=== PATIENT | female | born 1945 | race African-American/Black ===

== ENCOUNTER 2019-09-10 15:14 | Emergency (ER) | payer MEDICARE ==
[~2019-09-10] VITALS: Ht 157.5 cm; Wt 77.3 kg
[2019-09-10 15:20] VITALS: BP 162/72
[2019-09-10] MEDS ORDERED: METR-159 PO (16:58)
[2019-09-10] MEDS ORDERED: CEFU500T66 PO (16:58)
[2019-09-10] MEDS ORDERED: CefTRIAXone 1000mg IM Kit (w/lidocaine diluent) IM ONE (17:00)
[2019-09-10] MEDS ORDERED: EPIN0.3P3 IM (17:17)
== END 2019-09-10 17:40 | disposition home or self-care (01) ==
LOC: ER 15:15
DX: K02.9 Dental caries, unspecified (principal); Z98.890 Other specified postprocedural states; Z88.6 Allergy status to analgesic agent; Z88.0 Allergy status to penicillin; Z88.2 Allergy status to sulfonamides; Z88.1 Allergy status to other antibiotic agents; Z88.8 Allergy status to other drugs, medicaments and biological substances; Z79.2 Long term (current) use of antibiotics; Z79.899 Other long term (current) drug therapy
CPT/HCPCS: 96372; 99283; J0696

== ENCOUNTER 2020-10-12 15:18 | Inpatient (IN) | payer MEDICARE ==
[~2020-10-12] VITALS: Ht 157.5 cm; Wt 84.7 kg
[~2020-10-12 15:18] MED LIST: CEFU500T66 PO; EPIN0.3P3 IM
[2020-10-12 16:27] LABS: BASOPHILS % (AUTO) 0.4 % (0-1); EOSINOPHILS # (AUTO) 0.1 X10'3 (0-0.9); EOSINOPHILS % (AUTO) 0.9 % (0-6); HEMATOCRIT 39.5 % (35.0-45.0); HEMOGLOBIN 12.5 g/dl (12.0-16.0); LYMPHOCYTES # (AUTO) 1.4 X10'3 (1.1-4.8); LYMPHOCYTES % (AUTO) 24.2 % (21-51); MEAN CORPUSCULAR HGB CONC 31.7 g/dL (33.0-36.5); MEAN CORPUSCULAR VOLUME 82.1 FL (78-98); MEAN PLATELET VOLUME 9.3 FL (7.4-10.4); MONOCYTES # (AUTO) 0.5 X10'3 (0-0.9); MONOCYTES % (AUTO) 8.8 % (2-12); NEUTROPHILS # (AUTO) 3.8 X10'3 (1.8-7.7); NEUTROPHILS % (AUTO) 65.7 % (42-75); PLATELET COUNT 164 X10'3 (140-440); RED BLOOD COUNT 4.81 X10'6 (4.20-5.60); RED CELL DISTRIBUTION WIDTH 14.7 % (11.5-14.5); WHITE BLOOD COUNT 5.8 X10'3 (4.5-11.0)
[2020-10-12 17:02] LABS: ALANINE AMINOTRANSFERASE 18 U/L (12-78); ALBUMIN 3.4 G/DL (3.4-5.0); ALBUMIN/GLOBULIN RATIO 0.8 (1.1-1.5); ALKALINE PHOSPHATASE 99 IU/L (46-116); ANION GAP 7 (8-16); ASPARTATE AMINO TRANSFERASE 10 U/L (10-37); BILIRUBIN,TOTAL 0.4 MG/DL (0.1-1.0); BLOOD UREA NITROGEN 14 MG/DL (7-18); CALCIUM 9.5 MG/DL (8.5-10.1); CHLORIDE 107 MMOL/L (99-107); GLUCOSE 123 MG/DL (70-104); PARTIAL THROMBOPLASTIN TIME 29 SECONDS (22-32); POTASSIUM 4.4 MMOL/L (3.5-5.1); SODIUM 143 MMOL/L (135-145); TOTAL CARBON DIOXIDE 28.6 MMOL/L (24-32); TOTAL PROTEIN 7.7 G/DL (6.4-8.2); eGFR 66 ML/MIN
[2020-10-12] MEDS ORDERED: heparin 10,000 units/1 ML INJ IV ONE ×3 (17:15→17:55)
[2020-10-12] MEDS ORDERED: heparin 25,000 UNIT/250ml bag 250 ML IV SCH ×2 (17:15→17:55)
[2020-10-12 17:16] LABS: MAGNESIUM 2.1 MG/DL (1.5-2.4)
[2020-10-12] MEDS ORDERED: BISO1TAB99 PO (17:23)
[2020-10-12] MEDS ORDERED: QUIN20TA18 PO (17:23)
[2020-10-12] MEDS ORDERED: heparin 10,000 units/1 ML INJ IV PRN (17:55)
[2020-10-12] MEDS ORDERED: ondansetron/PF 4mg/2ml inj IV PRN (17:55)
[2020-10-12] MEDS ORDERED: magnesium 4gm in 100ml NS 100 ML IV PRN (17:55)
[2020-10-12] MEDS ORDERED: HYDROcodone/acetaminophen 10/325mg tab PO PRN (17:55)
[2020-10-12] MEDS ORDERED: potassium Cl 40MEQ/1/2NS 520ml 520 ML IV PRN ×2 (17:55)
[2020-10-12] MEDS ORDERED: potassium Cl 20 mEq SR tablet PO PRN ×2 (17:55)
[2020-10-12] MEDS ORDERED: magnesium 2GM in 50ml NS 50 ML IV PRN (17:55)
[2020-10-12] MEDS ORDERED: ipratropium/albuterol 3ml nebule NEB PRN (17:55)
[2020-10-12] MEDS ORDERED: albuterol 2.5 MG/3 ML nebule NEB PRN (17:55)
[2020-10-12] MEDS ORDERED: acetaminophen 325mg tablet PO PRN ×2 (17:55)
[2020-10-12] MEDS ORDERED: HYDROcodone/acetaminophen 5mg/325mg tablet PO PRN (17:55)
--- NOTE | 2020-10-12 18:14 | NUR ---
ocular care technician at bedside.
[2020-10-12] MEDS: heparin 25,000 UNIT/250ml bag 250 ML IV SCH (19:29)
[2020-10-12 20:00] VITALS: BP 165/75
[2020-10-12] MEDS: K and/or MAG REPLACEMENT MC SCH (20:00)
--- NOTE | 2020-10-12 20:10 | NUR ---
Pt. arrived on [facility]/ED in no acute distress. Transferred to bed. Oriented to bed controls, room, and surrounding. POC reviewed w/pt. Tele unit applied, MRSA swab taken, and 2 RN skin check completed. Heparin drip infusing to L arm at 1500U/HR. Slight SOB noted when pt. talking or moving in bed. States that this has been happening at home X 1 week. Lungs are clear. Food and PO fluids given per pt request.
[2020-10-12] MEDS: docusate sod 100mg capsule PO SCH (20:45)
[2020-10-12 22:00] VITALS: BP 139/76
[2020-10-13 02:00] VITALS: BP 141/73
--- NOTE | 2020-10-13 02:16 | NUR ---
Page Sent PAGER ID: [phone] MESSAGE: pt Guider, Taylor 75 F here for Bilat PE, ptt of 137, following protocol- Brendan [id number]
[2020-10-13 06:00] VITALS: BP 154/72
--- NOTE | 2020-10-13 06:50 | NUR ---
Problems reprioritized. Patient report given, questions answered & plan of care reviewed with Austin MORALES.
--- NOTE | 2020-10-13 06:52 | NUR ---
REPORT RECEIVED BY GABRIELA MORALES. PT SITTING ON THE BED WITH NO APPARENT DISTRESS NOTED AT THIS TIME. PT HAS NC AT [address] PT HAS IV TO LEFT AC RUNNING HEPARIN DRIP PENDING PTT RESULTS. PT WALKED WITH PHYSICAL THERAPY STATES SHE FELT BETTER THAN YESTERDAY. WILL CONTINUE TO MONITOR. CALL [facility] WITHIN REACH SAFETY PREC IN PLACE.
[2020-10-13 07:06] LABS: BASOPHILS % (AUTO) 0.4 % (0-1); EOSINOPHILS # (AUTO) 0.1 X10'3 (0-0.9); EOSINOPHILS % (AUTO) 1.8 % (0-6); HEMATOCRIT 37.9 % (35.0-45.0); HEMOGLOBIN 12.3 g/dl (12.0-16.0); LYMPHOCYTES # (AUTO) 3.1 X10'3 (1.1-4.8); LYMPHOCYTES % (AUTO) 43.2 % (21-51); MEAN CORPUSCULAR HEMOGLOBIN 26.3 PG (27.0-31.0); MEAN CORPUSCULAR HGB CONC 32.5 g/dL (33.0-36.5); MEAN CORPUSCULAR VOLUME 81.1 FL (78-98); MEAN PLATELET VOLUME 9.5 FL (7.4-10.4); MONOCYTES # (AUTO) 0.7 X10'3 (0-0.9); MONOCYTES % (AUTO) 9.9 % (2-12); NEUTROPHILS # (AUTO) 3.2 X10'3 (1.8-7.7); NEUTROPHILS % (AUTO) 44.7 % (42-75); PLATELET COUNT 164 X10'3 (140-440); RED BLOOD COUNT 4.67 X10'6 (4.20-5.60); RED CELL DISTRIBUTION WIDTH 14.1 % (11.5-14.5); WHITE BLOOD COUNT 7.2 X10'3 (4.5-11.0)
[2020-10-13 07:15] LABS: ALANINE AMINOTRANSFERASE 18 U/L (12-78); ALBUMIN 3.2 G/DL (3.4-5.0); ALBUMIN/GLOBULIN RATIO 0.8 (1.1-1.5); ALKALINE PHOSPHATASE 91 IU/L (46-116); ANION GAP 9 (8-16); ASPARTATE AMINO TRANSFERASE 12 U/L (10-37); BILIRUBIN,TOTAL 0.5 MG/DL (0.1-1.0); BLOOD UREA NITROGEN 13 MG/DL (7-18); BUN/CREATININE RATIO 13.4 (6.6-38.0); CALCIUM 8.8 MG/DL (8.5-10.1); CHLORIDE 107 MMOL/L (99-107); CREATININE 0.97 MG/DL (0.40-0.90); GLUCOSE 123 MG/DL (70-104); POTASSIUM 3.6 MMOL/L (3.5-5.1); SODIUM 145 MMOL/L (135-145); TOTAL CARBON DIOXIDE 29.1 MMOL/L (24-32); TOTAL PROTEIN 7.1 G/DL (6.4-8.2); eGFR 68 ML/MIN
[2020-10-13 07:18] LABS: CHOL/HDL RATIO 3.9 (0.00-4.99); CHOLESTEROL 208 MG/DL (0-200); HDL CHOLESTEROL 54 MG/DL (35-60); LDL CHOLESTEROL 144 MG/DL (50-100); MAGNESIUM 2.1 MG/DL (1.5-2.4); TRIGLYCERIDES 95 MG/DL (20-135)
[2020-10-13] MEDS: atenolol 25mg tablet PO SCH (07:35)
[2020-10-13] MEDS: HYDROchlorothiazide 25mg tablet PO SCH (07:36)
[2020-10-13] MEDS: lisinopril 20mg tablet PO SCH (07:37)
[2020-10-13] MEDS: docusate sod 100mg capsule PO SCH ×2 (07:37→20:00)
[2020-10-13] MEDS: K and/or MAG REPLACEMENT MC SCH ×2 (08:00→20:00)
[2020-10-13 11:00] VITALS: BP 108/68
[2020-10-13] MEDS: heparin 25,000 UNIT/250ml bag 250 ML IV SCH (12:31)
[2020-10-13 15:00] VITALS: BP 115/62
--- NOTE | 2020-10-13 15:05 | NUR ---
called lab for patient ptt results. lab will send phelb to draw patient. will continue to monitor
--- NOTE | 2020-10-13 16:57 | NUR ---
patient running heparin at 1200 unit per hr. ptt is wnl. pt denies any acute distress, pt able to move all extremties. pt staes shes feeling better today. pt stillm on o2 2 liters will decrease to 1 l. will monitor
--- NOTE | 2020-10-13 18:24 | NUR ---
report given to jaycob murray. pt alert and orientated x3. pt denies any acute distress. pt laying on bed with bed at lowest position. iv running with heparin drip. will transfer care. pt brought down to 1 l nc.
--- NOTE | 2020-10-13 19:05 | NUR ---
REPORT RECEIVED. NO ACUTE DISTRESS AT THIS TIME
[2020-10-14 06:00] VITALS: BP 136/77
--- NOTE | 2020-10-14 06:29 | NUR ---
Patient in room PCU 3018. I have received report from AZUCENA MORALES and had the opportunity to ask questions and assume patient care. no distress noted at this time. pt laying on bed with bed at lowest position. patient denies any pain at this time.
[2020-10-14 06:50] LABS: BASOPHILS % (AUTO) 0.5 % (0-1); EOSINOPHILS # (AUTO) 0.2 X10'3 (0-0.9); EOSINOPHILS % (AUTO) 2.9 % (0-6); HEMATOCRIT 36.6 % (35.0-45.0); HEMOGLOBIN 11.8 g/dl (12.0-16.0); LYMPHOCYTES # (AUTO) 2.4 X10'3 (1.1-4.8); LYMPHOCYTES % (AUTO) 45.3 % (21-51); MEAN CORPUSCULAR HEMOGLOBIN 26.4 PG (27.0-31.0); MEAN CORPUSCULAR HGB CONC 32.2 g/dL (33.0-36.5); MEAN CORPUSCULAR VOLUME 81.8 FL (78-98); MEAN PLATELET VOLUME 8.9 FL (7.4-10.4); MONOCYTES # (AUTO) 0.5 X10'3 (0-0.9); MONOCYTES % (AUTO) 10.3 % (2-12); NEUTROPHILS # (AUTO) 2.1 X10'3 (1.8-7.7); PLATELET COUNT 153 X10'3 (140-440); RED BLOOD COUNT 4.47 X10'6 (4.20-5.60); RED CELL DISTRIBUTION WIDTH 14.5 % (11.5-14.5); WHITE BLOOD COUNT 5.2 X10'3 (4.5-11.0)
[2020-10-14 07:06] LABS: ALANINE AMINOTRANSFERASE 19 U/L (12-78); ALBUMIN/GLOBULIN RATIO 0.8 (1.1-1.5); ALKALINE PHOSPHATASE 83 IU/L (46-116); ANION GAP 7 (8-16); ASPARTATE AMINO TRANSFERASE 18 U/L (10-37); BILIRUBIN,TOTAL 0.4 MG/DL (0.1-1.0); BLOOD UREA NITROGEN 12 MG/DL (7-18); BUN/CREATININE RATIO 14.5 (6.6-38.0); CHLORIDE 108 MMOL/L (99-107); CREATININE 0.83 MG/DL (0.40-0.90); GLUCOSE 111 MG/DL (70-104); POTASSIUM 3.9 MMOL/L (3.5-5.1); SODIUM 145 MMOL/L (135-145); TOTAL CARBON DIOXIDE 30.5 MMOL/L (24-32); eGFR 82 ML/MIN
[2020-10-14] MEDS: heparin 25,000 UNIT/250ml bag 250 ML IV SCH ×2 (07:16→14:10)
[2020-10-14 07:25] VITALS: BP 125/70
[2020-10-14] MEDS: HYDROchlorothiazide 25mg tablet PO SCH (07:46)
[2020-10-14] MEDS: atenolol 25mg tablet PO SCH (07:46)
[2020-10-14] MEDS: K and/or MAG REPLACEMENT MC SCH ×2 (07:48→20:00)
[2020-10-14] MEDS: docusate sod 100mg capsule PO SCH ×2 (07:48→20:00)
[2020-10-14] MEDS: lisinopril 20mg tablet PO SCH (07:49)
[2020-10-14] MEDS ORDERED: pneumococcal 23-VAL P-sac vacc 25 mcg/0.5ml vial IMVAC ONE (10:00)
[2020-10-14 11:00] VITALS: BP 119/63
[2020-10-14 15:00] VITALS: BP 121/62
--- NOTE | 2020-10-14 18:28 | NUR ---
report given to jaycob murray. pt sleeping on bed with no distress noted. pt iv heparin dc. pt will start eliquis. pt was given IS during the day metting 1500cc 10 times q1. pt on nc 1 liter. will transfer report at this time.
[2020-10-14 19:41] VITALS: BP 108/54
[2020-10-14] MEDS: apixaban 5mg tablet PO SCH (21:55)
[2020-10-15] VITALS (7 sets, daily range): BP systolic 99–138; BP diastolic 55–70
[2020-10-15 06:37] LABS: BASOPHILS % (AUTO) 0.5 % (0-1); EOSINOPHILS # (AUTO) 0.2 X10'3 (0-0.9); EOSINOPHILS % (AUTO) 3.7 % (0-6); HEMATOCRIT 36.7 % (35.0-45.0); LYMPHOCYTES # (AUTO) 2.1 X10'3 (1.1-4.8); LYMPHOCYTES % (AUTO) 44.3 % (21-51); MEAN CORPUSCULAR HEMOGLOBIN 26.7 PG (27.0-31.0); MEAN CORPUSCULAR HGB CONC 32.6 g/dL (33.0-36.5); MEAN CORPUSCULAR VOLUME 81.7 FL (78-98); MEAN PLATELET VOLUME 9.1 FL (7.4-10.4); MONOCYTES # (AUTO) 0.6 X10'3 (0-0.9); NEUTROPHILS # (AUTO) 1.9 X10'3 (1.8-7.7); NEUTROPHILS % (AUTO) 38.5 % (42-75); PLATELET COUNT 151 X10'3 (140-440); RED BLOOD COUNT 4.49 X10'6 (4.20-5.60); RED CELL DISTRIBUTION WIDTH 13.9 % (11.5-14.5); WHITE BLOOD COUNT 4.8 X10'3 (4.5-11.0)
--- NOTE | 2020-10-15 06:38 | NUR ---
Patient in room PCU 3018. I have received report from Yue MORALES and had the opportunity to ask questions and assume patient care.
--- NOTE | 2020-10-15 06:41 | NUR ---
REPORT GIVEN TO DIEGO MORALES, PT RESTING QUIETLY. NO ACUTE DISTRESS
[2020-10-15 07:00] LABS: ALANINE AMINOTRANSFERASE 19 U/L (12-78); ALBUMIN/GLOBULIN RATIO 0.8 (1.1-1.5); ALKALINE PHOSPHATASE 83 IU/L (46-116); ANION GAP 4 (8-16); ASPARTATE AMINO TRANSFERASE 13 U/L (10-37); BILIRUBIN,TOTAL 0.3 MG/DL (0.1-1.0); BLOOD UREA NITROGEN 12 MG/DL (7-18); BUN/CREATININE RATIO 14.5 (6.6-38.0); CHLORIDE 107 MMOL/L (99-107); CREATININE 0.83 MG/DL (0.40-0.90); GLUCOSE 104 MG/DL (70-104); MAGNESIUM 2.2 MG/DL (1.5-2.4); SODIUM 142 MMOL/L (135-145); TOTAL CARBON DIOXIDE 30.6 MMOL/L (24-32); TOTAL PROTEIN 6.8 G/DL (6.4-8.2); eGFR 82 ML/MIN
[2020-10-15] MEDS: K and/or MAG REPLACEMENT MC SCH ×2 (08:00→20:00)
[2020-10-15] MEDS: docusate sod 100mg capsule PO SCH ×2 (08:21→20:00)
[2020-10-15] MEDS: HYDROchlorothiazide 25mg tablet PO SCH (08:21)
[2020-10-15] MEDS: lisinopril 20mg tablet PO SCH (08:21)
[2020-10-15] MEDS: apixaban 5mg tablet PO SCH ×2 (08:21→21:31)
[2020-10-15] MEDS: atenolol 25mg tablet PO SCH (08:22)
--- NOTE | 2020-10-15 18:19 | NUR ---
Problems reprioritized. Patient report given, questions answered & plan of care reviewed with Yue MORALES.
--- NOTE | 2020-10-15 18:26 | NUR ---
REPORT RECEIVED FROM DIEGO MORALES, PLAN REVIEWED AND PATIENT CARE PROVIDED
[2020-10-16 02:00] VITALS: BP 120/60
--- NOTE | 2020-10-16 06:16 | NUR ---
REPORT RECEIVED TO DIEGO MORALES, PLAN REVIEWED AND PATIENT CARE PROVIDED
[2020-10-16 06:59] LABS: BASOPHILS % (AUTO) 0.6 % (0-1); EOSINOPHILS # (AUTO) 0.1 X10'3 (0-0.9); EOSINOPHILS % (AUTO) 2.6 % (0-6); HEMATOCRIT 38.4 % (35.0-45.0); HEMOGLOBIN 12.3 g/dl (12.0-16.0); LYMPHOCYTES # (AUTO) 2.5 X10'3 (1.1-4.8); LYMPHOCYTES % (AUTO) 48.4 % (21-51); MEAN CORPUSCULAR HEMOGLOBIN 26.2 PG (27.0-31.0); MEAN CORPUSCULAR HGB CONC 32.1 g/dL (33.0-36.5); MEAN CORPUSCULAR VOLUME 81.8 FL (78-98); MEAN PLATELET VOLUME 9.4 FL (7.4-10.4); MONOCYTES # (AUTO) 0.6 X10'3 (0-0.9); MONOCYTES % (AUTO) 12.3 % (2-12); NEUTROPHILS # (AUTO) 1.9 X10'3 (1.8-7.7); NEUTROPHILS % (AUTO) 36.1 % (42-75); PLATELET COUNT 165 X10'3 (140-440); RED CELL DISTRIBUTION WIDTH 14.2 % (11.5-14.5); WHITE BLOOD COUNT 5.2 X10'3 (4.5-11.0)
[2020-10-16 07:00] VITALS: BP 123/66
[2020-10-16 07:29] LABS: ALANINE AMINOTRANSFERASE 28 U/L (12-78); ALBUMIN 3.1 G/DL (3.4-5.0); ALBUMIN/GLOBULIN RATIO 0.8 (1.1-1.5); ALKALINE PHOSPHATASE 84 IU/L (46-116); ANION GAP 9 (8-16); ASPARTATE AMINO TRANSFERASE 20 U/L (10-37); BILIRUBIN,TOTAL 0.4 MG/DL (0.1-1.0); BLOOD UREA NITROGEN 15 MG/DL (7-18); BUN/CREATININE RATIO 17.2 (6.6-38.0); CALCIUM 8.9 MG/DL (8.5-10.1); CHLORIDE 107 MMOL/L (99-107); CREATININE 0.87 MG/DL (0.40-0.90); GLUCOSE 107 MG/DL (70-104); MAGNESIUM 2.1 MG/DL (1.5-2.4); SODIUM 143 MMOL/L (135-145); TOTAL CARBON DIOXIDE 27.2 MMOL/L (24-32); TOTAL PROTEIN 7.2 G/DL (6.4-8.2); eGFR 77 ML/MIN
[2020-10-16 07:59] VITALS: BP_SYST 126
[2020-10-16] MEDS: apixaban 5mg tablet PO SCH (07:59)
[2020-10-16] MEDS: lisinopril 20mg tablet PO SCH (07:59)
[2020-10-16] MEDS: HYDROchlorothiazide 25mg tablet PO SCH (07:59)
[2020-10-16] MEDS: atenolol 25mg tablet PO SCH (07:59)
[2020-10-16] MEDS: K and/or MAG REPLACEMENT MC SCH (08:00)
[2020-10-16] MEDS: docusate sod 100mg capsule PO SCH (08:00)
[2020-10-16] MEDS ORDERED: APIX5TAB3 PO (12:14)
--- NOTE | 2020-10-16 13:54 | NUR ---
Patient stable for discharge per MD order. All necessary discharge information and education reviewed with patient before signing necessary paperwork. IV's discontinued with catheter in tact, color television console monitor removed, all patient belongings packed up and sent with patient (phone area safety manager was left, placed in belongings bag with patient label attached in unit's lost and found)
== END 2020-10-16 13:20 | disposition home health service (06) | DRG 176 ==
LOC: ER 15:18 → ED HOLD 17:51 → PCU 3S 20:17
PROVIDERS: ADMIT Family Medicine; ATTEND Family Medicine
DX: I26.99 Other pulmonary embolism without acute cor pulmonale (principal); R09.02 Hypoxemia; I10 Essential (primary) hypertension; Z20.822 Contact with and (suspected) exposure to COVID-19; I48.0 Paroxysmal atrial fibrillation; Z80.1 Family history of malignant neoplasm of trachea, bronchus and lung; Z80.8 Family history of malignant neoplasm of other organs or systems; Z86.711 Personal history of pulmonary embolism; Z86.718 Personal history of other venous thrombosis and embolism; Z87.891 Personal history of nicotine dependence; Z88.0 Allergy status to penicillin; Z88.2 Allergy status to sulfonamides; Z88.1 Allergy status to other antibiotic agents; Z88.8 Allergy status to other drugs, medicaments and biological substances; Z79.899 Other long term (current) drug therapy
CPT/HCPCS: 36415; 80053; 80061; 83735; 83880; 84484; 85025; 85610; 85730; 87081; 87635; 90732; 93005; 93306; 93308; 94760; 97161; 97530; 99285; C9803; G0378; J1644